=== PATIENT | male | born 1950 | race Caucasian/White ===

== ENCOUNTER 2021-07-17 18:16 | Observation (INO) | payer MEDICARE, SELFPAY ==
[2021-07-17 18:20] VITALS: BP 128/86; PULSE 108; PULSE 96; RESP 16; TEMP 36.8; O2SAT 96
--- NOTE | 2021-07-17 18:27 | ED.WEAKNESS ---
HPI - Weakness General Chief complaint: Unspecified Stated complaint: Safety concerns/knee pain Time Seen by Provider: 07/17/21 18:27 Source: patient, family and RN notes reviewed Mode of arrival: wheelchair Limitations: physical limitation History of Present Illness HPI Narrative: patient has been having progressively worsening pain over the last 4-5 days. 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 He has been having significant pain in his right knee and went to an other hospital yesterday where they did x-rays on the right knee that only showed arthritis. He is having so much pain in that right knee that he is unable to stand and pivot to get to the bathroom and time and today he actually had a bowel accident. He lives alone with no one else to care for him. He cannot get around his house on his own due to the right knee pain and prosthesis on his left leg. He has been feeling also progressively weak. His right lower extremity as become more dusky and cold with a purple discoloration. Denies any pain in the area below his knee only the pain in his right knee. MD Complaint: generalized weakness Duration: constant Location: generalized Migration: none Severity: moderate Relieving factors: none Exacerbating factors: movement Related Data Home Medications Medication Instructions Recorded Confirmed Mucinex 600 mg PO BID 07/17/21 07/17/21 acetaminophen-codeine 1 tablet PO PRN 07/17/21 07/17/21 albuterol sulfate 1 puff INHALATION Q4-5H 07/17/21 07/17/21 aspirin 81 mg PO DAILY 07/17/21 07/17/21 axitinib [Inlyta] 5 mg PO BID 07/17/21 07/17/21 betamethasone dipropionate 1 applic TOPICAL BID 07/17/21 07/17/21 bimatoprost [Lumigan] 1 drp OPHTHALMIC (EYE) HS 07/17/21 07/17/21 furosemide 40 mg PO DAILY 07/17/21 07/17/21 hydrocodone-acetaminophen 1 tablet PO PRN PRN 07/17/21 07/17/21 insulin degludec [Tresiba 20 unit SUBCUT DAILY 07/17/21 07/17/21 FlexTouch U-100] levothyroxine 200 mcg PO DAILY 07/17/21 07/17/21 simvastatin 60 mg PO HS 07/17/21 07/17/21 Allergies Allergy/AdvReac Type Severity Reaction Status Date / Time No Known Allergies Allergy Verified 07/17/21 18:40 Review of Systems Review of Systems: All systems reviewed & are unremarkable except as noted in HPI and below Constitutional: Constitutional: Denies chills and Denies fever(s) Cardiovascular: Cardiovascular: Denies chest pain and Denies rapid heart rate Respiratory: Respiratory: Denies cough and Denies dyspnea Gastrointestinal: Gastrointestinal: Denies diarrhea, Denies nausea and Denies vomiting Musculoskeletal: Comments: Pain in his right lower extremity right knee, discoloration of lower leg below the knee. Neurologic: Denies dizziness, Denies syncope and Denies headache(s) [facility] Past Medical History Medical History (Updated 07/17/21 @ 20:02 by Tank Clemens MD) Hyperlipidemia Hypothyroidism Metastatic cancer Peripheral vascular disease Renal cancer Type 2 diabetes mellitus Surgical History Surgical History (Updated 07/17/21 @ 19:29 by Tank Clemens MD) Above knee amputation of left lower extremity History of carpal tunnel release History of nephrectomy Hx of cholecystectomy Social History Social History (Updated 07/17/21 @ 19:30 by Tank Clemens MD) Smoking status: Never smoker Alcohol intake: current Alcohol use details: occasional Substance use: never Exam Const: General: no acute distress, alert and ill appearing chronically Nutritional Appearance: well nourished Orientation/consciousness: patient oriented x3 HENMT: Head: normal to inspection Ears: external ears normal General nose exam: Normal external nose present Eyes: Conjunctivae: conjunctivae normal Pupils: Equal, round and reactive pupils present EOM: EOMs intact bilaterally Neck: Neck: normal visual inspection Resp: Effort & Inspection: normal respiratory effort Auscultation: clear to auscul
[2021-07-17 18:52] LABS: Basophils Absolute Auto 0.05 K/mm3 (0.00-0.10); Basophils Percent Auto 0.5 % (0.0-1.0); Eosinophils Absolute Auto 0.11 K/mm3 (0.02-0.50); Hematocrit 43.6 % (37.0-46.0); Hemoglobin 12.5 g/dL (12.4-15.3); Immature Granulocyte Absolute 0.03 K/mm3 (0.00-0.00); Immature Granulocyte Percent A 0.3 % (0.0-0.0); Immature Platelet Fraction Pct 0.4 % (1.0-7.0); Mean Corpuscular HGB Conc 28.7 g/dL (32.0-36.0); Mean Corpuscular Hemoglobin 21.1 pg (27.0-31.0); Mean Corpuscular Volume 73.6 fL (78.0-102.0); Mean Platelet Volume 7.9 fl (8.7-11.0); Monocytes Absolute Auto 1.13 K/mm3 (0.10-0.90); Monocytes Percent Auto 10.4 % (2.0-11.0); Neutrophils Absolute Auto 8.2 K/mm3 (1.7-7.2); Neutrophils Percent Auto 75.8 % (50.0-70.0); Platelet Count Result 696 K/mm3 (150-420); Red Blood Count 5.92 M/mm3 (4.70-6.10); Red Cell Distribution Width 19.5 % (11.6-14.4); White Blood Count 10.9 K/mm3 (4.8-10.8)
--- NOTE | 2021-07-17 19:00 | PC.NURSE ---
RN doppled pts pedal and PT pulse. Pulses were faint but RN was able to hear it. X noted to foot from when EMS found it yesterday.
--- NOTE | 2021-07-17 19:01 | PC.NURSE ---
RN provided ice water as well as a urinal. Pt aware of need for urine specimen.
[2021-07-17 19:05] LABS: Alanine Aminotransferase 34 U/L (16-63); Albumin Level 2.1 g/dL (3.4-5.0); Alkaline Phosphatase 138 U/L (46-116); Anion Gap 16 mmol/L (8-16); Aspartate Amino Transferase 24 U/L (15-37); Bilirubin,Total 0.5 mg/dL (0.00-1.00); Blood Urea Nitrogen 26 mg/dL (7-18); Calcium 9.3 mg/dL (8.5-10.1); Carbon Dioxide 20 mmol/L (21-32); Chloride 101 mmol/L (98-108); Estimated CRCL calculation 52 ml/min; Estimated Glomerular Filt Rate 58; Glucose 212 mg/dL (70-99); Magnesium 1.7 mg/dL (1.8-2.4); Osmolality Calculated 294 mOsm/kg (285-295); Potassium 3.8 mmol/L (3.5-5.1); Sodium 137 mmol/L (136-145); Total Protein 7.9 g/dL (6.4-8.2)
[2021-07-17 19:07] LABS: CRP > 25.0 mg/dL (0.0-0.9)
[2021-07-17 19:16] LABS: Add Urine Microscopic? YES; Appearance Urine Clear (Clear); Bilirubin Urine Negative (Negative); Blood Urine Negative (Negative); Color Urine Yellow (Yellow); Glucose Urine UA 3+ (Negative); Ketones Urine Negative (Negative); Leukocyte Esterase Ur Negative LEU/UL (Negative); Nitrate Urine Negative (Negative); Protein Urine Trace (Negative); Urobilinogen Urine 0.2 mg/dL (0.2-1.0); pH Urine 5.5 (5.0-8.0)
[2021-07-17 19:24] LABS: Mucus Urine Few /lpf; Squamous Epithelial Cell Urine Rare /hpf (Few)
--- NOTE | 2021-07-17 19:25 | PC.NURSE ---
RN gave report to fahad ALFARO. Pts medical release form faxed to [facility]
--- NOTE | 2021-07-17 20:07 | PC.NURSE ---
Call placed to M/S p Dr Clemens spoke yanique Rivera NP for 23 hr obs. Pt to go to Rm 203. Pt sitting up in bed, no c/o at this time. VSS.
[2021-07-17] MEDS: LIDOCAINE HCL 1% LOCAL INJ 20 ML VIAL XX (20:15)
[2021-07-17] MEDS: TRIAMCINOLONE ACET INJ 40 MG/ML VIAL I-ARTICULR (20:15)
[2021-07-17 20:27] VITALS: BP 124/71; PULSE 100; RESP 18; TEMP 36.4; O2SAT 96
[2021-07-17 22:00] VITALS: O2SAT 96
--- NOTE | 2021-07-17 22:00 | PC.NURSE ---
Patient admitted to room 203 from the ER per stretcher. Is alert and oriented times 3, no c/o pain at this time, oriented to room, call light and surroundings.
[2021-07-17 22:07] VITALS: BMI 29.6
[2021-07-17 22:42] VITALS: PULSE 70; O2SAT 94
--- NOTE | 2021-07-17 22:43 | PC.NURSE ---
Doctor note stated patient live alone. Patient lives in [place] with his .
[2021-07-18] VITALS: BP 113/62; PULSE 70; RESP 18; TEMP 36.1; O2SAT 94
[2021-07-18 05:08] LABS: Hematocrit 41.2 % (37.0-46.0); Hemoglobin 11.8 g/dL (12.4-15.3); Immature Platelet Fraction Pct 0.5 % (1.0-7.0); Mean Corpuscular HGB Conc 28.6 g/dL (32.0-36.0); Mean Corpuscular Hemoglobin 21.1 pg (27.0-31.0); Mean Corpuscular Volume 73.6 fL (78.0-102.0); Mean Platelet Volume 8.6 fl (8.7-11.0); Platelet Count Result 643 K/mm3 (150-420); Red Cell Distribution Width 19.2 % (11.6-14.4); White Blood Count 6.6 K/mm3 (4.8-10.8)
[2021-07-18 05:30] VITALS: O2SAT 94
[2021-07-18 05:30] LABS: Anion Gap 10 mmol/L (8-16); Blood Urea Nitrogen 25 mg/dL (7-18); Calcium 9.1 mg/dL (8.5-10.1); Carbon Dioxide 23 mmol/L (21-32); Chloride 101 mmol/L (98-108); Estimated CRCL calculation 60 ml/min; Estimated Glomerular Filt Rate > 60; Glucose 197 mg/dL (70-99); Osmolality Calculated 287 mOsm/kg (285-295); Potassium 5.3 mmol/L (3.5-5.1); Sodium 134 mmol/L (136-145)
[2021-07-18] MEDS: LEVOTHYROXINE SODIUM 100 MCG TABLET 200 MCG PO (06:15)
[2021-07-18 08:00] VITALS: BP 121/70; PULSE 85; RESP 18; TEMP 35.9; O2SAT 97
--- NOTE | 2021-07-18 08:28 | PHAR ---
med from home identified [id number] [facility] Pharmacy - [facility] Inlyta 1 mg tablets - 3 tablets bid
[2021-07-18] MEDS: ASPIRIN 81 MG ENTERIC TABLET PO (08:33)
[2021-07-18] MEDS: guaiFENesin 12 HR 600 MG TABCR PO (08:33)
[2021-07-18 16:00] VITALS: BP 125/69; PULSE 80; RESP 16; TEMP 36; O2SAT 97
[2021-07-18] MEDS: HYDROcodone/acetaminophen (*CRX) 5-325 MG TABLET 1 TAB PO (16:03)
[2021-07-18 16:43] LABS: Magnesium 2.1 mg/dL (1.8-2.4)
[2021-07-18 16:45] LABS: Glucose Point of Care 238 mg/dl (65-105)
[2021-07-18] MEDS: SODIUM CHLORIDE 0.9% IV 1,000 ML 100 ML IV CONT (18:37)
[2021-07-18] MEDS: SIMVASTATIN 10 MG TABLET 60 MG PO (21:11)
[2021-07-18 21:31] LABS: Glucose Point of Care 224 mg/dl (65-105)
[2021-07-19] VITALS: BP 134/68; PULSE 73; RESP 18; TEMP 36.2; O2SAT 95
[2021-07-19] MEDS: SODIUM CHLORIDE 0.9% IV 1,000 ML 100 ML IV CONT ×2 (05:15→16:09)
[2021-07-19 05:30] VITALS: O2SAT 95
[2021-07-19 05:30] LABS: Hematocrit 39.9 % (37.0-46.0); Hemoglobin 11.5 g/dL (12.4-15.3); Immature Platelet Fraction Pct 0.6 % (1.0-7.0); Mean Corpuscular HGB Conc 28.8 g/dL (32.0-36.0); Mean Corpuscular Hemoglobin 21.3 pg (27.0-31.0); Mean Corpuscular Volume 73.8 fL (78.0-102.0); Mean Platelet Volume 8.9 fl (8.7-11.0); Platelet Count Result 670 K/mm3 (150-420); Red Blood Count 5.41 M/mm3 (4.70-6.10); Red Cell Distribution Width 19.1 % (11.6-14.4); White Blood Count 11.3 K/mm3 (4.8-10.8)
[2021-07-19 05:44] LABS: Anion Gap 15 mmol/L (8-16); Blood Urea Nitrogen 28 mg/dL (7-18); Calcium 8.7 mg/dL (8.5-10.1); Carbon Dioxide 21 mmol/L (21-32); Chloride 103 mmol/L (98-108); Estimated CRCL calculation 61 ml/min; Estimated Glomerular Filt Rate > 60; Glucose 299 mg/dL (70-99); Osmolality Calculated 304 mOsm/kg (285-295); Potassium 5.1 mmol/L (3.5-5.1); Sodium 139 mmol/L (136-145)
[2021-07-19] MEDS: LEVOTHYROXINE SODIUM 100 MCG TABLET 200 MCG PO (06:17)
[2021-07-19 07:39] LABS: Glucose Point of Care 218 mg/dl (65-105)
[2021-07-19 08:00] VITALS: BP 129/73; PULSE 80; RESP 14; TEMP 36.5; O2SAT 96
[2021-07-19] MEDS: FUROSEMIDE 40 MG TABLET PO (09:08)
[2021-07-19] MEDS: guaiFENesin 12 HR 600 MG TABCR PO ×2 (09:08→21:06)
[2021-07-19] MEDS: ASPIRIN 81 MG ENTERIC TABLET PO (09:08)
--- NOTE | 2021-07-19 10:07 | PM.IMHP ---
H&P: HPI History of Present Illness Date/Time: 07/19/21 10:07 is a 70-year-old male presented to the emergency room with frequent falls weakness and inability to care for himself at home. Received a phone call from the emergency room stating that patient had a urinary tract infection, had a left below the knee amputation patient has prostheses at home but has a sore on his leg and ability to wear it appropriately right, right leg has cellulitis with poor circulation peripheral vallate vascular disease and discoloration pulses had to be doppled with faint pulses noted. Patient was admitted with WBCs at 10.9 hemoglobin 12.5, sodium 137, potassium 3.8 mag was low at 1.7. Patient was seen 1 day prior in the emergency room at another hospital due to progressive knee pain and weakness x-ray was completed there and he was informed that he has arthritis in his knee. Discussion with patient and his as she feels like he is needing physical therapy at a rehab and or snf as she is unable to care for him at this time. Patient in the emergency room received a steroid injection in his knee for the pain. Chief Complaint: Weakness, knee pain Review of Systems Review of Systems: Weakness, right leg pain, falls All systems reviewed & are unremarkable except as noted in HPI and below PMFSH Past Medical History Medical History (Updated 07/20/21 @ 17:01 by YASMIN Norman) Hyperlipidemia Hypothyroidism Metastatic cancer Peripheral vascular disease Renal cancer Type 2 diabetes mellitus Surgical History Surgical History Above knee amputation of left lower extremity History of carpal tunnel release History of nephrectomy Hx of cholecystectomy Social History Social History Smoking status: Smoker, status unknown Second hand tobacco smoke exposure: No Alcohol intake: never Alcohol use details: occasional Substance use: never Gender identity (if verbalized by the patient): Male Sexual Orientation (if Verbalized by the Patient): Straight or Heterosexual Spiritual care concerns: No Meds Home Medications and Allergies Home Medications Medication Instructions Recorded Confirmed Type Inlyta 5 mg PO BID 07/17/21 07/20/21 History Lumigan 1 drp OPHTHALMIC (EYE) HS 07/17/21 07/20/21 History Mucinex 600 mg PO BID 07/17/21 07/20/21 History Tresiba FlexTouch U-100 20 unit SUBCUT DAILY 07/17/21 07/20/21 History acetaminophen-codeine 1 tablet PO PRN 07/17/21 07/20/21 History albuterol sulfate 1 puff INHALATION Q4-5H 07/17/21 07/20/21 History aspirin 81 mg PO DAILY 07/17/21 07/20/21 History betamethasone dipropionate 1 applic TOPICAL BID 07/17/21 07/20/21 History furosemide 40 mg PO DAILY 07/17/21 07/20/21 History hydrocodone-acetaminophen 1 tablet PO PRN PRN 07/17/21 07/20/21 History levothyroxine 200 mcg PO DAILY 07/17/21 07/20/21 History simvastatin 60 mg PO HS 07/17/21 07/20/21 History ceftriaxone 1 g IV Q24H 7 Days ea 07/20/21 07/20/21 Rx Allergies Allergy/AdvReac Type Severity Reaction Status Date / Time No Known Allergies Allergy Verified 07/17/21 18:40 Vital Signs Vital Signs - 24 hr 07/18/21 16:00 07/19/21 00:00 07/19/21 08:00 Temperature 96.8 F L 97.2 F L 97.7 F Pulse Rate 80 73 80 Respiratory Rate 16 18 14 Blood Pressure 125/69 134/68 129/73 Pulse Oximetry 97 95 96 Exam Narrative: GENERAL: This is a well-nourished, in no apparent distress. HEAD: normocephalic, atraumatic. EYES: PERRL. Sclera clear/white. Vision is grossly intact. NOSE: External nose normal with no obvious nasal discharge, nares without redness, no rhinorrhea. THROAT: Mucous membranes moist, posterior pharynx clear. CARDIOVASCULAR: Regular rate and rhythm without murmurs, gallops, or rubs. RESPIRATORY: Clear to auscultation. Breath sounds equal bilaterally. No wheezes, rales, or rhonchi. GASTROINTEST
[2021-07-19 11:02] LABS: Glucose Point of Care 245 mg/dl (65-105)
[2021-07-19 11:03] LABS: Glucose Point of Care 231 mg/dl (65-105)
[2021-07-19 11:51] LABS: Glucose Point of Care 244 mg/dl (65-105)
[2021-07-19 15:41] VITALS: BP 127/72; PULSE 78; RESP 16; TEMP 36.2
[2021-07-19 16:19] LABS: Glucose Point of Care 193 mg/dl (65-105)
[2021-07-19] MEDS: SIMVASTATIN 10 MG TABLET 60 MG PO (21:06)
[2021-07-19 21:23] LABS: Glucose Point of Care 249 mg/dl (65-105)
[2021-07-20] VITALS: BP 131/75; PULSE 76; RESP 18; TEMP 36.1; O2SAT 95
[2021-07-20] MEDS: SODIUM CHLORIDE 0.9% IV 1,000 ML 100 ML IV CONT (01:44)
[2021-07-20 05:42] LABS: Hematocrit 39.9 % (37.0-46.0); Hemoglobin 11.5 g/dL (12.4-15.3); Immature Platelet Fraction Pct 0.5 % (1.0-7.0); Mean Corpuscular HGB Conc 28.8 g/dL (32.0-36.0); Mean Corpuscular Hemoglobin 21.1 pg (27.0-31.0); Mean Corpuscular Volume 73.2 fL (78.0-102.0); Mean Platelet Volume 8.4 fl (8.7-11.0); Platelet Count Result 647 K/mm3 (150-420); Red Blood Count 5.45 M/mm3 (4.70-6.10); Red Cell Distribution Width 19.5 % (11.6-14.4); White Blood Count 10.7 K/mm3 (4.8-10.8)
[2021-07-20 05:48] LABS: Anion Gap 14 mmol/L (8-16); Blood Urea Nitrogen 24 mg/dL (7-18); Calcium 8.7 mg/dL (8.5-10.1); Carbon Dioxide 21 mmol/L (21-32); Chloride 102 mmol/L (98-108); Estimated CRCL calculation 65 ml/min; Estimated Glomerular Filt Rate > 60; Glucose 215 mg/dL (70-99); Osmolality Calculated 294 mOsm/kg (285-295); Potassium 4.4 mmol/L (3.5-5.1); Sodium 137 mmol/L (136-145)
[2021-07-20] MEDS: LEVOTHYROXINE SODIUM 100 MCG TABLET 200 MCG PO (06:11)
[2021-07-20 07:58] LABS: Glucose Point of Care 210 mg/dl (65-105)
[2021-07-20 08:00] VITALS: BP 137/79; PULSE 86; RESP 14; TEMP 36.3; O2SAT 96
[2021-07-20] MEDS: ASPIRIN 81 MG ENTERIC TABLET PO (08:54)
[2021-07-20] MEDS: guaiFENesin 12 HR 600 MG TABCR PO (08:54)
[2021-07-20] MEDS: FUROSEMIDE 40 MG TABLET PO (08:54)
[2021-07-20] MEDS: ACETAMINOPHEN 325 MG TABLET 650 MG PO (11:37)
[2021-07-20 11:47] LABS: Glucose Point of Care 223 mg/dl (65-105)
--- NOTE | 2021-07-20 12:09 | PM.DS ---
DS: Admitting Diagnosis Discharge Date 07/20/2021 Admitting Diagnosis Status post fall, generalized weakness, UTI DS: Discharge Diagnosis Discharge Diagnosis (1) Weakness generalized: Code(s): R53.1 - Weakness Status: Acute Assessment and Plan: ? Exhibit tolerance during physical activity as evidenced by a normal fluctuation of vital signs during physical activity. ? Patient will be ability to perform required activities of daily living. ? Provide appropriate nutrition for healing and strength. ? Use appropriate to prevent falls. ? Continue physical therapy/occupational therapy. (2) Acute UTI: Code(s): N39.0 - Urinary tract infection, site not specified Status: Acute Assessment and Plan: Rocephin D3 Urine culture sent off after the start of Rocephin Patient's WBC within normal limits and afebrile (3) Knee osteoarthritis: Qualifiers: Laterality: right Osteoarthritis type: primary Qualified Code(s): M17.11 - Unilateral primary osteoarthritis, right knee Code(s): M17.10 - Unilateral primary osteoarthritis, unspecified knee Status: Acute Assessment and Plan: Pt given steroid injection in the emergency room physical therpay to evaluate and treat X-ray of the right knee pending (4) Type 2 diabetes mellitus: Code(s): E11.9 - Type 2 diabetes mellitus without complications Status: Inactive Assessment and Plan: Blood sugar less than 300 Accu checks with sliding scale hypoglycemic protocol Continue diabetic diet Will adjust medication as needed DS: Summary Hospital Course Reason for hospitalization: Right knee pain, UTI and generalized weakness Hospital Course: This is a 70-year-old male that presented to our emergency department with worsening pain to his right knee , generalized weakness status post fall. According to the patient approximately 2 weeks ago he presented to [place] emergency department due to his weakness and was diagnosed with arthritis to his right knee. Patient notes that his condition did not improve and he came to our emergency department status post fall and generalized weakness with unresolved right knee pain. patient notes that he experienced pain with weightbearing and no pain while sitting still. Patient is being treated for urinary tract infection with Rocephin. His condition has improved he will transition to a swing bed. Patient admitted in swing bed for rehabilitation due to decreased balance decreased mobility in severe limited function endurant and/or mobility. Time Spent with Patient Time attestation: Total time spent providing and/or coordinating discharge services: Exam Narrative: GENERAL: This is a well-nourished, well-developed patient, in no apparent distress. HEAD: normocephalic, atraumatic. EYES: PERRL. Sclera clear/white. Vision is grossly intact. EARS: External ears normal, auditory canals clear and without drainage, TMs normal without perforation. Hearing grossly intact. NOSE: External nose normal with no obvious nasal discharge, nares without redness, no rhinorrhea. THROAT: Mucous membranes moist, posterior pharynx clear. NECK: Neck supple, non-tender without lymphadenopathy, masses or thyromegaly. CARDIOVASCULAR: Regular rate and rhythm without murmurs, gallops, or rubs. RESPIRATORY: Clear to auscultation. Breath sounds equal bilaterally. No wheezes, rales, or rhonchi. GASTROINTESTINAL: Abdomen soft, non-tender, nondistended. Bowel sounds are active. No hepato-splenomegaly, or palpable masses. No guarding. SKIN: AKA to left lower extremity prosthetic in place, right lower extremity with discoloration and coolness to right extremity patient with history of PVD and cellulitis. Several scabs to right lower extremity. Multiple skin tears and discoloration to the upper extremities NEURO: awake, alert, and oriented to person, place and time. There were no obvious focal neurologic abnormalities.
== END 2021-07-20 12:10 | disposition swing bed (61) ==
LOC: CHSED 20:01 → CHS2ND 20:29
PROVIDERS: Nurse Practitioner Family; Admitting Provider Emergency Medicine; Emergency Provider Emergency Medicine; PCP Internal Medicine; Visit Provider Emergency Medicine
DX: R53.1 Weakness (principal); M17.11 Unilateral primary osteoarthritis, right knee; N39.0 Urinary tract infection, site not specified; L03.115 Cellulitis of right lower limb; T87.89 Other complications of amputation stump; E11.51 Type 2 diabetes mellitus with diabetic peripheral angiopathy without gangrene; E78.5 Hyperlipidemia, unspecified; E03.9 Hypothyroidism, unspecified; R29.6 Repeated falls; Z79.4 Long term (current) use of insulin; Z85.528 Personal history of other malignant neoplasm of kidney; Z89.612 Acquired absence of left leg above knee
CPT/HCPCS: 20610; 36415; 80048; 80053; 81001; 82948; 83735; 85025; 85027; 85055; 86140; 87086; 96361; 96365; 96366; 97110; 97162; 97165; 97530; 97535; 99285; A9270; G0378; J0696; J1815; J3301; J7030

== ENCOUNTER 2021-07-20 12:41 | Inpatient (IN) | payer MEDICARE, SELFPAY ==
--- NOTE | ~2021-07-20 | XR_ITS ---
EXAMINATION: XR chest 1V portable INDICATION: Cough TECHNIQUE: Portable AP chest at 1102 hours COMPARISON: None available FINDINGS: There is a 2.2 cm nodule left upper lobe. There is also fullness of the left hilum. No pleu ral effusion or pneumothorax. The heart size is normal. IMPRESSION: 1. 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 Further evaluation with CT of the ch est is recommended. Reviewed, dictated and finalized at location A. [place] MEDIA CAMPAIGN MANAGER IMPRESSION: 1. 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 Further evalua tion with CT of the chest is recommended.
[2021-07-20 14:00] VITALS: BP 137/79; PULSE 86; RESP 14; TEMP 36.7; O2SAT 96
[2021-07-20 16:00] VITALS: BP 131/77; PULSE 84; RESP 16; TEMP 36.2; O2SAT 97
--- NOTE | 2021-07-20 16:16 | PHAR ---
HOME MEDICATION VERIFIED BY PHARMACY: VERIFIED WITH RN OVER THE PHONE DRUG NAME: INLYTA INGREDIENTS: AXITINIB -- 1 MG RELATED DOCUMENTS: DRUGDEX EVALUATIONS - AXITINIB COLOR: RED SHAPE: OVAL IMPRINT: 1 XNB PFIZER FORM: ORAL TABLET
[2021-07-20 16:42] LABS: Glucose Point of Care 219 mg/dl (65-105)
--- NOTE | 2021-07-20 16:59 | PM.IMHP ---
H&P: HPI History of Present Illness Date/Time: 07/20/21 16:59Thimagdy is a 70-year-old male that presented to our emergency department with worsening pain to his right knee , generalized weakness status post fall. According to the patient approximately 2 weeks ago he presented to [place] emergency department due to his weakness and was diagnosed with arthritis to his right knee. Patient notes that his condition did not improve and he came to our emergency department status post fall and generalized weakness with unresolved right knee pain. patient notes that he experienced pain with weightbearing and no pain while sitting still. Patient is being treated for urinary tract infection with Rocephin. His condition has improved he will transition to a swing bed. Patient admitted in swing bed for rehabilitation due to decreased balance decreased mobility in severe limited function endurant and/or mobility. Chief Complaint: Weakness Review of Systems Review of Systems: A 14 organ system Review of Systems was performed and pertinent positives included in the HPI, otherwise remaining ROS is negative. [facility] Past Medical History Medical History (Updated 07/20/21 @ 17:01 by YASMIN Norman) Hyperlipidemia Hypothyroidism Metastatic cancer Peripheral vascular disease Renal cancer Type 2 diabetes mellitus Surgical History Surgical History Above knee amputation of left lower extremity History of carpal tunnel release History of nephrectomy Hx of cholecystectomy Social History Social History Smoking status: Smoker, status unknown Second hand tobacco smoke exposure: No Alcohol intake: never Alcohol use details: occasional Substance use: never Gender identity (if verbalized by the patient): Male Sexual Orientation (if Verbalized by the Patient): Straight or Heterosexual Spiritual care concerns: No Meds Home Medications and Allergies Home Medications Medication Instructions Recorded Confirmed Type Inlyta 5 mg PO BID 07/17/21 07/20/21 History Lumigan 1 drp OPHTHALMIC (EYE) HS 07/17/21 07/20/21 History Mucinex 600 mg PO BID 07/17/21 07/20/21 History Tresiba FlexTouch U-100 20 unit SUBCUT DAILY 07/17/21 07/20/21 History acetaminophen-codeine 1 tablet PO PRN 07/17/21 07/20/21 History albuterol sulfate 1 puff INHALATION Q4-5H 07/17/21 07/20/21 History aspirin 81 mg PO DAILY 07/17/21 07/20/21 History betamethasone dipropionate 1 applic TOPICAL BID 07/17/21 07/20/21 History furosemide 40 mg PO DAILY 07/17/21 07/20/21 History hydrocodone-acetaminophen 1 tablet PO PRN PRN 07/17/21 07/20/21 History levothyroxine 200 mcg PO DAILY 07/17/21 07/20/21 History simvastatin 60 mg PO HS 07/17/21 07/20/21 History ceftriaxone 1 g IV Q24H 7 Days ea 07/20/21 07/20/21 Rx Allergies Allergy/AdvReac Type Severity Reaction Status Date / Time No Known Allergies Allergy Verified 07/17/21 18:40 Vital Signs Vital Signs - 24 hr 07/20/21 14:00 Temperature 98.0 F Pulse Rate 86 Respiratory Rate 14 Blood Pressure 137/79 Pulse Oximetry 96 Exam Narrative: GENERAL: This is a well-nourished, well-developed patient, in no apparent distress. HEAD: normocephalic, atraumatic. EYES: PERRL. Sclera clear/white. Vision is grossly intact. EARS: External ears normal, auditory canals clear and without drainage, TMs normal without perforation. Hearing grossly intact. NOSE: External nose normal with no obvious nasal discharge, nares without redness, no rhinorrhea. THROAT: Mucous membranes moist, posterior pharynx clear. NECK: Neck supple, non-tender without lymphadenopathy, masses or thyromegaly. CARDIOVASCULAR: Regular rate and rhythm without murmurs, gallops, or rubs. RESPIRATORY: Clear to auscultation. Breath sounds equal bilaterally. No wheezes, rales, or rhonchi. GASTROINTESTINAL: Abdomen soft, non-tender, nondistended. Bowel
[2021-07-20] MEDS: HYDROcodone/acetaminophen (*CRX) 5-325 MG TABLET 1 TAB PO (18:00)
[2021-07-20] MEDS: SIMVASTATIN 10 MG TABLET 60 MG PO (20:58)
[2021-07-20] MEDS: INSULIN GLARGINE (*BKC) 100 UNITS/ML 20 UNITS SUB-Q (20:58)
[2021-07-20] MEDS: DOCUSATE SODIUM 100 MG CAPSULE PO (20:58)
[2021-07-20 21:02] LABS: Glucose Point of Care 281 mg/dl (65-105)
[2021-07-20] MEDS: LATANOPROST 0.005% OP SOLN 2.5 ML BTL 1 DROP EACH EYE (21:03)
[2021-07-21] VITALS: BP 129/76; PULSE 82; RESP 16; TEMP 36.8; O2SAT 97
[2021-07-21] MEDS: HYDROcodone/acetaminophen (*CRX) 5-325 MG TABLET 1 TAB PO ×2 (00:22→20:25)
[2021-07-21] MEDS: LEVOTHYROXINE SODIUM 100 MCG TABLET 200 MCG PO (05:41)
[2021-07-21 07:34] LABS: Glucose Point of Care 172 mg/dl (65-105)
[2021-07-21 08:00] VITALS: BP 130/70; PULSE 80; RESP 20; TEMP 36.4; O2SAT 95
[2021-07-21] MEDS: DOCUSATE SODIUM 100 MG CAPSULE PO ×2 (08:17→20:22)
[2021-07-21] MEDS: FUROSEMIDE 40 MG TABLET PO (08:17)
[2021-07-21] MEDS: ASPIRIN 81 MG ENTERIC TABLET PO (08:17)
[2021-07-21 12:00] LABS: Glucose Point of Care 228 mg/dl (65-105)
[2021-07-21 15:34] VITALS: BP 123/82; PULSE 99; RESP 16; TEMP 36.8; O2SAT 98
[2021-07-21 17:11] LABS: Glucose Point of Care 227 mg/dl (65-105)
[2021-07-21] MEDS: ACETAMINOPHEN 325 MG TABLET 650 MG PO (17:20)
[2021-07-21 20:17] LABS: Glucose Point of Care 222 mg/dl (65-105)
[2021-07-21] MEDS: INSULIN GLARGINE (*BKC) 100 UNITS/ML 20 UNITS SUB-Q (20:23)
[2021-07-21] MEDS: LATANOPROST 0.005% OP SOLN 2.5 ML BTL 1 DROP EACH EYE (20:24)
[2021-07-21] MEDS: SIMVASTATIN 10 MG TABLET 60 MG PO (20:24)
[2021-07-22] VITALS: BP 136/81; PULSE 81; RESP 18; TEMP 36; O2SAT 97
[2021-07-22] MEDS: HYDROcodone/acetaminophen (*CRX) 5-325 MG TABLET 1 TAB PO ×2 (02:28→21:25)
[2021-07-22] MEDS: LEVOTHYROXINE SODIUM 100 MCG TABLET 200 MCG PO (06:13)
[2021-07-22 08:00] VITALS: BP 114/74; PULSE 74; RESP 20; TEMP 36.6; O2SAT 96
[2021-07-22 08:00] LABS: Glucose Point of Care 219 mg/dl (65-105)
[2021-07-22] MEDS: DOCUSATE SODIUM 100 MG CAPSULE PO ×2 (09:07→21:24)
[2021-07-22] MEDS: ASPIRIN 81 MG ENTERIC TABLET PO (09:07)
[2021-07-22] MEDS: FUROSEMIDE 40 MG TABLET PO (09:07)
[2021-07-22] MEDS: ACETAMINOPHEN 325 MG TABLET 650 MG PO ×2 (11:53→19:31)
[2021-07-22 12:02] LABS: Glucose Point of Care 255 mg/dl (65-105)
[2021-07-22 16:00] VITALS: BP 134/79; PULSE 99; RESP 18; TEMP 35.9; O2SAT 97
[2021-07-22 16:55] LABS: Glucose Point of Care 280 mg/dl (65-105)
[2021-07-22] MEDS: SIMVASTATIN 10 MG TABLET 60 MG PO (21:24)
[2021-07-22] MEDS: LATANOPROST 0.005% OP SOLN 2.5 ML BTL 1 DROP EACH EYE (21:24)
[2021-07-22] MEDS: INSULIN GLARGINE (*BKC) 100 UNITS/ML 20 UNITS SUB-Q (21:26)
[2021-07-22 21:37] LABS: Glucose Point of Care 266 mg/dl (65-105)
[2021-07-23] VITALS: BP 138/71; PULSE 86; RESP 20; TEMP 35.7; O2SAT 95
--- NOTE | 2021-07-23 00:13 | PC.NURSE ---
Pt resting in bed and states he is comfortable. No signs of discomfort noted.
--- NOTE | 2021-07-23 02:05 | PC.NURSE ---
Pt resting quietly in bed; 325 ml of clear, yellow urine emptied from the urinal.
[2021-07-23] MEDS: LEVOTHYROXINE SODIUM 100 MCG TABLET 200 MCG PO (06:35)
--- NOTE | 2021-07-23 06:40 | PC.NURSE ---
Pt given synthroid 200 mcg PO as ordered. 125 ml of clear, yellow urine emptied from urinal.
[2021-07-23 07:35] VITALS: BP 127/71; PULSE 92; RESP 16; TEMP 35.9; O2SAT 94
[2021-07-23 08:31] LABS: Glucose Point of Care 206 mg/dl (65-105)
[2021-07-23] MEDS: FUROSEMIDE 40 MG TABLET PO (09:14)
[2021-07-23] MEDS: DOCUSATE SODIUM 100 MG CAPSULE PO ×2 (09:14→20:34)
[2021-07-23] MEDS: ASPIRIN 81 MG ENTERIC TABLET PO (09:14)
[2021-07-23] MEDS: HYDROcodone/acetaminophen (*CRX) 5-325 MG TABLET 1 TAB PO ×2 (09:18→20:39)
[2021-07-23 12:09] LABS: Glucose Point of Care 246 mg/dl (65-105)
[2021-07-23 16:17] LABS: Glucose Point of Care 345 mg/dl (65-105)
[2021-07-23 16:30] VITALS: BP 139/75; PULSE 92; RESP 16; TEMP 36.4; O2SAT 96
[2021-07-23] MEDS: SIMVASTATIN 10 MG TABLET 60 MG PO (20:34)
[2021-07-23] MEDS: LATANOPROST 0.005% OP SOLN 2.5 ML BTL 1 DROP EACH EYE (20:36)
[2021-07-23] MEDS: INSULIN GLARGINE (*BKC) 100 UNITS/ML 20 UNITS SUB-Q (20:37)
[2021-07-23 20:38] LABS: Glucose Point of Care 284 mg/dl (65-105)
[2021-07-24] VITALS: BP 134/79; PULSE 90; RESP 18; TEMP 36.3; O2SAT 96
[2021-07-24] MEDS: LEVOTHYROXINE SODIUM 100 MCG TABLET 200 MCG PO (05:44)
[2021-07-24] MEDS: HYDROcodone/acetaminophen (*CRX) 5-325 MG TABLET 1 TAB PO ×2 (06:21→16:34)
[2021-07-24 07:59] LABS: Glucose Point of Care 192 mg/dl (65-105)
[2021-07-24 08:00] VITALS: BP 135/73; PULSE 87; RESP 14; TEMP 35.7; O2SAT 98
[2021-07-24] MEDS: ASPIRIN 81 MG ENTERIC TABLET PO (09:09)
[2021-07-24] MEDS: DOCUSATE SODIUM 100 MG CAPSULE PO ×2 (09:09→20:31)
[2021-07-24] MEDS: FUROSEMIDE 40 MG TABLET PO (09:09)
[2021-07-24 11:58] LABS: Glucose Point of Care 275 mg/dl (65-105)
[2021-07-24 16:00] VITALS: BP 134/70; PULSE 94; RESP 16; TEMP 36.3; O2SAT 97
[2021-07-24 16:31] LABS: Glucose Point of Care 311 mg/dl (65-105)
[2021-07-24] MEDS: SIMVASTATIN 10 MG TABLET 60 MG PO (20:30)
[2021-07-24] MEDS: LATANOPROST 0.005% OP SOLN 2.5 ML BTL 1 DROP EACH EYE (20:32)
[2021-07-24 20:35] LABS: Glucose Point of Care 283 mg/dl (65-105)
[2021-07-24] MEDS: INSULIN GLARGINE (*BKC) 100 UNITS/ML 20 UNITS SUB-Q (20:44)
[2021-07-25] VITALS: BP 133/70; PULSE 84; RESP 18; TEMP 35.8; O2SAT 96
[2021-07-25] MEDS: HYDROcodone/acetaminophen (*CRX) 5-325 MG TABLET 1 TAB PO ×4 (00:37→23:30)
[2021-07-25 05:27] LABS: Hemoglobin 13.3 g/dL (12.4-15.3); Immature Platelet Fraction Pct 0.8 % (1.0-7.0); Mean Corpuscular HGB Conc 28.9 g/dL (32.0-36.0); Mean Corpuscular Hemoglobin 21.7 pg (27.0-31.0); Mean Platelet Volume 8.5 fl (8.7-11.0); Platelet Count Result 597 K/mm3 (150-420); Red Blood Count 6.13 M/mm3 (4.70-6.10); White Blood Count 10.6 K/mm3 (4.8-10.8)
[2021-07-25 06:02] LABS: Alanine Aminotransferase 45 U/L (16-63); Albumin Level 1.9 g/dL (3.4-5.0); Alkaline Phosphatase 149 U/L (46-116); Anion Gap 12 mmol/L (8-16); Aspartate Amino Transferase 28 U/L (15-37); Bilirubin,Total 0.4 mg/dL (0.00-1.00); Blood Urea Nitrogen 19 mg/dL (7-18); Calcium 9.1 mg/dL (8.5-10.1); Carbon Dioxide 24 mmol/L (21-32); Chloride 99 mmol/L (98-108); Estimated Glomerular Filt Rate > 60; Ferritin 442 ng/mL (26-388); Folic Acid 17.4 ng/mL (8.6->20); Glucose 252 mg/dL (70-99); Magnesium 2.1 mg/dL (1.8-2.4); Osmolality Calculated 291 mOsm/kg (285-295); Potassium 4.2 mmol/L (3.5-5.1); Sodium 135 mmol/L (136-145); Total Protein 7.3 g/dL (6.4-8.2); Vitamin B12 205 pg/mL (193-986)
[2021-07-25] MEDS: LEVOTHYROXINE SODIUM 100 MCG TABLET 200 MCG PO (06:08)
[2021-07-25 06:14] LABS: Iron 21 ug/dL (65-175); Percent Iron Saturation 13 % (12-57)
[2021-07-25 07:38] LABS: Glucose Point of Care 171 mg/dl (65-105)
[2021-07-25 08:00] VITALS: BP 115/65; PULSE 110; RESP 14; TEMP 35.9; O2SAT 96
[2021-07-25] MEDS: DOCUSATE SODIUM 100 MG CAPSULE PO ×2 (09:18→21:11)
[2021-07-25] MEDS: ASPIRIN 81 MG ENTERIC TABLET PO (09:18)
[2021-07-25] MEDS: FUROSEMIDE 40 MG TABLET PO (09:20)
[2021-07-25 11:54] LABS: Glucose Point of Care 292 mg/dl (65-105)
[2021-07-25 16:00] VITALS: BP 120/64; PULSE 94; RESP 20; TEMP 35.8; O2SAT 98
[2021-07-25 17:01] LABS: Glucose Point of Care > 450 mg/dl (65-105)
[2021-07-25 17:08] LABS: Glucose Point of Care 353 mg/dl (65-105)
[2021-07-25] MEDS: SIMVASTATIN 10 MG TABLET 60 MG PO (21:11)
[2021-07-25 21:25] LABS: Glucose Point of Care 264 mg/dl (65-105)
[2021-07-25] MEDS: LATANOPROST 0.005% OP SOLN 2.5 ML BTL 1 DROP EACH EYE (21:25)
[2021-07-25] MEDS: INSULIN GLARGINE (*BKC) 100 UNITS/ML 20 UNITS SUB-Q (21:27)
[2021-07-25 23:40] VITALS: BP 137/62; PULSE 88; RESP 18; TEMP 36.1; O2SAT 96
[2021-07-26] MEDS: LEVOTHYROXINE SODIUM 100 MCG TABLET 200 MCG PO (05:38)
[2021-07-26 07:44] LABS: Glucose Point of Care 194 mg/dl (65-105)
--- NOTE | 2021-07-26 07:57 | PM.EVENT ---
Event Note Event Note Event Note: bs elevated changed SSI to moderate and increased lantus to 25unit instead of 20 unit hs.
[2021-07-26 08:00] VITALS: BP 121/74; PULSE 72; RESP 16; TEMP 36; O2SAT 100
[2021-07-26] MEDS: ASPIRIN 81 MG ENTERIC TABLET PO (08:06)
[2021-07-26] MEDS: FUROSEMIDE 40 MG TABLET PO (08:07)
[2021-07-26] MEDS: DOCUSATE SODIUM 100 MG CAPSULE PO ×2 (08:07→20:48)
--- NOTE | 2021-07-26 09:57 | PC.NURSE ---
Patient continues to take 2 chemo medication tablets during med pass instead of 3, stating that 3 causes too many side effects for him. Office Professional administered 2 tablets per patient request.
[2021-07-26 12:44] LABS: Glucose Point of Care 278 mg/dl (65-105)
--- NOTE | 2021-07-26 13:37 | PC.NURSE ---
Pasta Press Operator assessed wound on outer R heel of patient. Wound is not open, scabbed over with thick dry skin, and doesn't appear to be tender to the touch. Wound is currently ZIPPER MEASURER.
[2021-07-26] MEDS: HYDROcodone/acetaminophen (*CRX) 5-325 MG TABLET 1 TAB PO ×2 (15:15→21:19)
[2021-07-26 16:00] VITALS: BP 127/79; PULSE 94; RESP 18; TEMP 35.9; O2SAT 98
[2021-07-26 16:47] LABS: Glucose Point of Care 260 mg/dl (65-105)
[2021-07-26] MEDS: SIMVASTATIN 10 MG TABLET 60 MG PO (20:48)
[2021-07-26] MEDS: INSULIN GLARGINE (*BKC) 100 UNITS/ML 25 UNITS SUB-Q (20:49)
[2021-07-26] MEDS: LATANOPROST 0.005% OP SOLN 2.5 ML BTL 1 DROP EACH EYE (20:49)
[2021-07-26 21:09] LABS: Glucose Point of Care 318 mg/dl (65-105)
[2021-07-27] VITALS: BP 134/77; PULSE 79; RESP 18; TEMP 35.7; O2SAT 97
[2021-07-27] MEDS: LEVOTHYROXINE SODIUM 100 MCG TABLET 200 MCG PO (06:16)
[2021-07-27 08:00] VITALS: BP 112/65; PULSE 116; RESP 20; TEMP 36; O2SAT 97
[2021-07-27 08:10] LABS: Glucose Point of Care 228 mg/dl (65-105)
[2021-07-27] MEDS: FUROSEMIDE 40 MG TABLET PO (09:09)
[2021-07-27] MEDS: DOCUSATE SODIUM 100 MG CAPSULE PO ×2 (09:09→21:27)
[2021-07-27] MEDS: ASPIRIN 81 MG ENTERIC TABLET PO (09:09)
--- NOTE | 2021-07-27 09:21 | PM.IMPN ---
Progress Note: A&P Assessment and Plan (1) Weakness generalized: Code(s): R53.1 - Weakness Status: Acute Assessment and Plan: ? Exhibit tolerance during physical activity as evidenced by a normal fluctuation of vital signs during physical activity. ? Patient will be ability to perform required activities of daily living. ? Provide appropriate nutrition for healing and strength. ? Use appropriate to prevent falls. ? Continue physical therapy/occupational therapy. Patient is not improving and he is getting harder for the nurses to assist plan for patient to go to [facility] rehab upon discharge. Patient currently has prostatic on (2) Acute UTI: Code(s): N39.0 - Urinary tract infection, site not specified Status: Acute Assessment and Plan: Rocephin Discontinued as dosage needed Urine culture sent off after the start of Rocephin Patient's WBC within normal limits and afebrile UTI RESOLVED culture showed no growth (3) Knee osteoarthritis: Qualifiers: Laterality: right Osteoarthritis type: primary Qualified Code(s): M17.11 - Unilateral primary osteoarthritis, right knee Code(s): M17.10 - Unilateral primary osteoarthritis, unspecified knee Status: Acute Assessment and Plan: Pt given steroid injection in the emergency room physical therpay to evaluate and treat Antiinflammatory medicatin (4) Type 2 diabetes mellitus: Qualifiers: Diabetes mellitus surveyor's assistant insulin use: unspecified surveyor's assistant insulin use status Diabetes mellitus complication status: with skin complications Diabetes mellitus complication detail: with other skin ulcer Qualified Code(s): E11.622 - Type 2 diabetes mellitus with other skin ulcer; L98.499 - Non-pressure chronic ulcer of skin of other sites with unspecified severity Code(s): E11.9 - Type 2 diabetes mellitus without complications Status: Acute Assessment and Plan: Blood sugar less than 300 Accu checks with sliding scale hypoglycemic protocol Continue diabetic diet Will adjust medication as needed Additional Plan Continue to monitor blood sugar AC and HS Insulin according to sliding scale guideline Carb count diet educate on diabetes HGa1c pending Subjective Date/time seen: 07/27/21 09:21 this is Monster Colvin being seen as a swing patient labs to be drawn and resulted today currently he has not shown much improvement at this time is becoming harder for nurses to assist in getting up he does has his prosthetic:. Patient complains of right hip pain that shooting up his leg severe peripheral vascular disease of the lower right leg left leg is amputated he has a prosthetic which is very hard for him to ambulate on as he initially had a sore states that the sores a lot better not causing him as much pain. We will plan for patient next week to possibly go to a [facility] or rehab. Patient denies any fever any nausea vomiting and/or diarrhea at this time patient feels as if he is improving today patient is slightly tachycardic we will continue to monitor. Review of Systems Review of Systems: Weakness , and leg pain/Knee pain All systems reviewed & are unremarkable except as noted in HPI and below Exam Narrative: GENERAL: This is a well-nourished, in no apparent distress. HEAD: normocephalic, atraumatic. EYES: PERRL. Sclera clear/white. Vision is grossly intact. NOSE: External nose normal with no obvious nasal discharge, nares without redness, no rhinorrhea. THROAT: Mucous membranes moist, posterior pharynx clear. CARDIOVASCULAR: Regular rate and rhythm without murmurs, gallops, or rubs. RESPIRATORY: Clear to auscultation. Breath sounds equal bilaterally. No wheezes, rales, or rhonchi. GASTROINTESTINAL: Abdomen soft, non-tender, nondistended. Bowel sounds are active. No hepato-splenomegaly, or palpable masses. No guarding. SKIN: AKA to left lower extremity right lower extremity with dis
[2021-07-27 10:11] LABS: Hematocrit 47.7 % (37.0-46.0); Hemoglobin 13.7 g/dL (12.4-15.3); Immature Platelet Fraction Pct 0.9 % (1.0-7.0); Mean Corpuscular HGB Conc 28.7 g/dL (32.0-36.0); Mean Corpuscular Hemoglobin 21.9 pg (27.0-31.0); Mean Corpuscular Volume 76.2 fL (78.0-102.0); Mean Platelet Volume 8.5 fl (8.7-11.0); Platelet Count Result 674 K/mm3 (150-420); Red Blood Count 6.26 M/mm3 (4.70-6.10); Red Cell Distribution Width 21.7 % (11.6-14.4); White Blood Count 13.2 K/mm3 (4.8-10.8)
[2021-07-27 10:20] LABS: Anion Gap 16 mmol/L (8-16); Blood Urea Nitrogen 23 mg/dL (7-18); Calcium 9.2 mg/dL (8.5-10.1); Carbon Dioxide 22 mmol/L (21-32); Chloride 93 mmol/L (98-108); Estimated Glomerular Filt Rate 55; Glucose 363 mg/dL (70-99); Osmolality Calculated 290 mOsm/kg (285-295); Potassium 3.9 mmol/L (3.5-5.1); Sodium 131 mmol/L (136-145)
[2021-07-27 10:22] LABS: Hemoglobin A1C 7.2 % (<5.7)
[2021-07-27] MEDS: HYDROcodone/acetaminophen (*CRX) 5-325 MG TABLET 1 TAB PO ×2 (10:23→21:32)
[2021-07-27 11:57] LABS: Glucose Point of Care 250 mg/dl (65-105)
[2021-07-27 13:56] LABS: Add Urine Microscopic? YES; Appearance Urine Clear (Clear); Bilirubin Urine Negative (Negative); Blood Urine Negative (Negative); Color Urine Light Yellow (Yellow); Glucose Urine UA Trace (Negative); Ketones Urine Negative (Negative); Leukocyte Esterase Ur Negative LEU/UL (Negative); Nitrate Urine Negative (Negative); Protein Urine Negative (Negative); Specific Grav Ur 1.015 (1.010-1.020); Urobilinogen Urine 0.2 mg/dL (0.2-1.0); pH Urine 5.5 (5.0-8.0)
[2021-07-27 14:00] LABS: Bacteria Urine Trace /hpf; RBC Urine None seen /hpf (0-2); WBC Urine None seen /hpf (0-3)
[2021-07-27 16:00] VITALS: BP 123/72; PULSE 101; RESP 18; TEMP 35.8; O2SAT 98
[2021-07-27 16:58] LABS: Glucose Point of Care 219 mg/dl (65-105)
[2021-07-27] MEDS: SIMVASTATIN 10 MG TABLET 60 MG PO (21:29)
[2021-07-27] MEDS: LATANOPROST 0.005% OP SOLN 2.5 ML BTL 1 DROP EACH EYE (21:30)
[2021-07-27] MEDS: INSULIN GLARGINE (*BKC) 100 UNITS/ML 25 UNITS SUB-Q (21:31)
[2021-07-27 21:40] LABS: Glucose Point of Care 181 mg/dl (65-105)
[2021-07-27 23:36] VITALS: BP 132/77; PULSE 92; RESP 16; TEMP 36.6; O2SAT 96
[2021-07-28] MEDS: LEVOTHYROXINE SODIUM 100 MCG TABLET 200 MCG PO (06:33)
[2021-07-28 08:00] VITALS: BP 131/60
[2021-07-28 08:13] LABS: Glucose Point of Care 194 mg/dl (65-105)
[2021-07-28] MEDS: FUROSEMIDE 40 MG TABLET PO (08:54)
[2021-07-28] MEDS: DOCUSATE SODIUM 100 MG CAPSULE PO ×2 (08:55→20:04)
[2021-07-28] MEDS: ASPIRIN 81 MG ENTERIC TABLET PO (08:55)
[2021-07-28 11:55] LABS: Glucose Point of Care 314 mg/dl (65-105)
[2021-07-28 16:00] VITALS: BP 106/87; PULSE 82; RESP 17; TEMP 36.1; O2SAT 98
[2021-07-28 17:09] LABS: Glucose Point of Care 244 mg/dl (65-105)
[2021-07-28] MEDS: HYDROcodone/acetaminophen (*CRX) 5-325 MG TABLET 1 TAB PO (20:04)
[2021-07-28] MEDS: SIMVASTATIN 10 MG TABLET 60 MG PO (20:05)
[2021-07-28] MEDS: LATANOPROST 0.005% OP SOLN 2.5 ML BTL 1 DROP EACH EYE (20:07)
[2021-07-28] MEDS: INSULIN GLARGINE (*BKC) 100 UNITS/ML 25 UNITS SUB-Q (20:08)
[2021-07-28 20:09] LABS: Glucose Point of Care 295 mg/dl (65-105)
[2021-07-28] MEDS: traMADol HCL (*CRX) 25 MG TABLET PO (23:36)
--- NOTE | 2021-07-28 23:37 | PC.NURSE ---
Tramadol given for leg pain, states has not been sleeping due to pain
[2021-07-28 23:43] VITALS: BP 110/60; PULSE 90; RESP 18; TEMP 36.1; O2SAT 95
[2021-07-29] MEDS: LEVOTHYROXINE SODIUM 100 MCG TABLET 200 MCG PO (05:41)
[2021-07-29 08:00] VITALS: BP 110/69; PULSE 108; RESP 14; TEMP 36.1; O2SAT 96
[2021-07-29 08:31] LABS: Glucose Point of Care 182 mg/dl (65-105)
[2021-07-29] MEDS: DOCUSATE SODIUM 100 MG CAPSULE PO ×2 (09:37→21:03)
[2021-07-29] MEDS: FUROSEMIDE 40 MG TABLET PO (09:37)
[2021-07-29] MEDS: ASPIRIN 81 MG ENTERIC TABLET PO (09:37)
[2021-07-29] MEDS: traMADol HCL (*CRX) 25 MG TABLET PO (09:47)
[2021-07-29 12:13] LABS: Glucose Point of Care 302 mg/dl (65-105)
[2021-07-29 16:30] VITALS: BP 134/59; PULSE 98; RESP 16; TEMP 35.7; O2SAT 100
[2021-07-29 16:49] LABS: Glucose Point of Care 358 mg/dl (65-105)
[2021-07-29] MEDS: HYDROcodone/acetaminophen (*CRX) 5-325 MG TABLET 1 TAB PO (17:49)
[2021-07-29 18:14] VITALS: BMI 29.6
[2021-07-29 21:03] LABS: Glucose Point of Care 321 mg/dl (65-105)
[2021-07-29] MEDS: INSULIN GLARGINE (*BKC) 100 UNITS/ML 25 UNITS SUB-Q (21:03)
[2021-07-29] MEDS: LATANOPROST 0.005% OP SOLN 2.5 ML BTL 1 DROP EACH EYE (21:03)
[2021-07-29] MEDS: SIMVASTATIN 10 MG TABLET 60 MG PO (21:03)
[2021-07-30] VITALS: BP 135/69; PULSE 89; RESP 16; TEMP 35.8; O2SAT 96
[2021-07-30] MEDS: HYDROcodone/acetaminophen (*CRX) 5-325 MG TABLET 1 TAB PO ×3 (00:23→19:27)
[2021-07-30] MEDS: LEVOTHYROXINE SODIUM 100 MCG TABLET 200 MCG PO (06:05)
[2021-07-30 07:26] LABS: Glucose Point of Care 214 mg/dl (65-105)
[2021-07-30 08:00] VITALS: BP 125/75; PULSE 89; RESP 16; TEMP 36.1; O2SAT 96
[2021-07-30] MEDS: DOCUSATE SODIUM 100 MG CAPSULE PO ×2 (08:29→21:51)
[2021-07-30] MEDS: FUROSEMIDE 40 MG TABLET PO (08:29)
[2021-07-30] MEDS: ASPIRIN 81 MG ENTERIC TABLET PO (08:29)
[2021-07-30 11:32] LABS: Glucose Point of Care 345 mg/dl (65-105)
[2021-07-30 15:39] VITALS: BP 127/64; PULSE 82; RESP 18; TEMP 35.9; O2SAT 98
[2021-07-30 16:38] LABS: Glucose Point of Care 316 mg/dl (65-105)
[2021-07-30] MEDS: SIMVASTATIN 10 MG TABLET 60 MG PO (21:50)
[2021-07-30 21:52] LABS: Glucose Point of Care 300 mg/dl (65-105)
[2021-07-30] MEDS: INSULIN GLARGINE (*BKC) 100 UNITS/ML 25 UNITS SUB-Q (21:53)
[2021-07-30] MEDS: LATANOPROST 0.005% OP SOLN 2.5 ML BTL 1 DROP EACH EYE (21:53)
[2021-07-31] VITALS: BP 142/63; PULSE 75; RESP 18; TEMP 37.2; O2SAT 98
[2021-07-31] MEDS: HYDROcodone/acetaminophen (*CRX) 5-325 MG TABLET 1 TAB PO ×3 (01:47→20:58)
[2021-07-31] MEDS: LEVOTHYROXINE SODIUM 100 MCG TABLET 200 MCG PO (06:01)
[2021-07-31 07:50] LABS: Glucose Point of Care 196 mg/dl (65-105)
[2021-07-31 07:52] VITALS: BP 127/75; PULSE 93; RESP 16; TEMP 36.1; O2SAT 96
[2021-07-31] MEDS: FUROSEMIDE 40 MG TABLET PO (08:05)
[2021-07-31] MEDS: ASPIRIN 81 MG ENTERIC TABLET PO (08:05)
[2021-07-31] MEDS: DOCUSATE SODIUM 100 MG CAPSULE PO ×2 (08:05→20:40)
[2021-07-31 11:49] LABS: Glucose Point of Care 301 mg/dl (65-105)
[2021-07-31 16:00] VITALS: BP 115/79; PULSE 97; RESP 16; TEMP 36.4; O2SAT 99
[2021-07-31 16:45] LABS: Glucose Point of Care 263 mg/dl (65-105)
[2021-07-31 20:44] LABS: Glucose Point of Care 222 mg/dl (65-105)
[2021-07-31] MEDS: INSULIN GLARGINE (*BKC) 100 UNITS/ML 25 UNITS SUB-Q (20:53)
[2021-07-31] MEDS: LATANOPROST 0.005% OP SOLN 2.5 ML BTL 1 DROP EACH EYE (20:56)
[2021-07-31] MEDS: SIMVASTATIN 10 MG TABLET 60 MG PO (21:00)
[2021-08-01] VITALS: BP 126/74; PULSE 84; RESP 20; TEMP 36.4; O2SAT 95
[2021-08-01] MEDS: LEVOTHYROXINE SODIUM 100 MCG TABLET 200 MCG PO (06:06)
[2021-08-01 07:41] LABS: Glucose Point of Care 159 mg/dl (65-105)
[2021-08-01 08:00] VITALS: BP 127/74; PULSE 89; RESP 14; TEMP 36.1; O2SAT 96
[2021-08-01] MEDS: DOCUSATE SODIUM 100 MG CAPSULE PO ×2 (09:04→20:48)
[2021-08-01] MEDS: FUROSEMIDE 40 MG TABLET PO (09:04)
[2021-08-01] MEDS: ASPIRIN 81 MG ENTERIC TABLET PO (09:04)
[2021-08-01 11:45] LABS: Glucose Point of Care 274 mg/dl (65-105)
[2021-08-01] MEDS: HYDROcodone/acetaminophen (*CRX) 5-325 MG TABLET 1 TAB PO ×2 (15:55→22:14)
[2021-08-01 16:00] VITALS: BP 116/65; PULSE 96; RESP 18; TEMP 36.2; O2SAT 98
[2021-08-01 17:00] LABS: Glucose Point of Care 248 mg/dl (65-105)
[2021-08-01 20:52] LABS: Glucose Point of Care 305 mg/dl (65-105)
[2021-08-01] MEDS: INSULIN GLARGINE (*BKC) 100 UNITS/ML 25 UNITS SUB-Q (20:56)
[2021-08-01] MEDS: LATANOPROST 0.005% OP SOLN 2.5 ML BTL 1 DROP EACH EYE (20:57)
[2021-08-01] MEDS: SIMVASTATIN 10 MG TABLET 60 MG PO (20:58)
[2021-08-01 23:50] VITALS: BP 131/77; PULSE 75; RESP 20; TEMP 36.6; O2SAT 98
[2021-08-02] MEDS: LEVOTHYROXINE SODIUM 100 MCG TABLET 200 MCG PO (05:50)
[2021-08-02 07:49] LABS: Glucose Point of Care 184 mg/dl (65-105)
[2021-08-02 07:52] VITALS: BP 126/77; PULSE 95; RESP 14; TEMP 35.6; O2SAT 97
--- NOTE | 2021-08-02 07:57 | PM.DS ---
DS: Admitting Diagnosis Discharge Date 08/02/2021 Admitting Diagnosis Weakness DS: Summary Time Spent with Patient Time attestation: Total time spent providing and/or coordinating discharge services: DS: Data Data Completed and Pending Labs on day of discharge: Labs from last 24 hours 08/02/21 08/01/21 08/01/21 07:44 20:45 16:54 POC Capillary Glucose 184 H 305 H 248 H 08/01/21 11:39 POC Capillary Glucose 274 H Discharge Plan Discharge Discharge Medications: No Action hydrocodone-acetaminophen 5-325 mg tablet 1 tablet PO PRN PRN (Reason: Pain) RF: 0 acetaminophen-codeine 300-30 mg tablet 1 tablet PO PRN RF: 0 betamethasone dipropionate 0.05 % cream 1 applic TOPICAL BID RF: 0 albuterol sulfate 90 mcg/actuation HFA aerosol inhaler 1 puff INHALATION Q4-5H RF: 0 aspirin 81 mg PO DAILY RF: 0 furosemide 40 mg tablet 40 mg PO DAILY RF: 0 simvastatin 40 mg tablet 60 mg PO HS RF: 0 levothyroxine 200 mcg tablet 200 mcg PO DAILY RF: 0 Lumigan 0.01 % drops 1 drp ophthalmic (eye) HS RF: 0 Inlyta 1 mg tablet 5 mg PO BID RF: 0 Tresiba FlexTouch U-100 100 unit/mL (3 mL) insulin pen 20 unit SUBCUT DAILY RF: 0 Mucinex 600 mg PO BID RF: 0 ceftriaxone 1 gram Recon Soln 1 g IV Q24H 7 Days RF: 0 Date of admission: 07/20/21 12:41 Primary Care Provider: Alejo,Jordan Vincent Admitting Provider: Luiza Geronimo Attending physician on admission: Luiza Geronimo
[2021-08-02] MEDS: DOCUSATE SODIUM 100 MG CAPSULE PO ×2 (08:50→21:02)
[2021-08-02] MEDS: ASPIRIN 81 MG ENTERIC TABLET PO (08:50)
[2021-08-02] MEDS: HYDROcodone/acetaminophen (*CRX) 5-325 MG TABLET 1 TAB PO ×2 (08:50→21:01)
[2021-08-02] MEDS: FUROSEMIDE 40 MG TABLET PO (08:52)
[2021-08-02] MEDS: ESCITALOPRAM OXALATE 10 MG TABLET PO (10:20)
--- NOTE | 2021-08-02 11:21 | PC.NURSE ---
Pt started on 10mg generic Lexapro for anxiety and depression. Pt instructed regarding doseage, time, SE of new medication. Pt verbalized understanding .
[2021-08-02 11:34] LABS: Glucose Point of Care 278 mg/dl (65-105)
--- NOTE | 2021-08-02 11:58 | PM.EVENT ---
Event Note Event Note Event Note: Patient complained of some depression and feeling hopelessness started patient on Lexapro at this time.
[2021-08-02 16:20] VITALS: BP 124/72; PULSE 93; RESP 16; TEMP 36.6; O2SAT 97
[2021-08-02 16:28] LABS: Glucose Point of Care 329 mg/dl (65-105)
--- NOTE | 2021-08-02 19:33 | PC.NURSE ---
Pt was transferred from chair to bed with 2 assist and the [employer]. Pt handled transfer very well, and verbalized he was pleased with the execution and precautions taken in terms of pt safety followed by this abstract writer and Brittany Ferguson RN.. Bed was then put in lowest position for pt safety and 4 bed rails are raised per pt request. 550 ml of fresh ice water was brought to the pt per request. Call light is within reach.
[2021-08-02 20:49] LABS: Glucose Point of Care 276 mg/dl (65-105)
[2021-08-02] MEDS: INSULIN GLARGINE (*BKC) 100 UNITS/ML 25 UNITS SUB-Q (21:00)
[2021-08-02] MEDS: LATANOPROST 0.005% OP SOLN 2.5 ML BTL 1 DROP EACH EYE (21:00)
[2021-08-02] MEDS: SIMVASTATIN 10 MG TABLET 60 MG PO (21:01)
[2021-08-02 23:01] VITALS: BP 127/85; PULSE 88; RESP 18; TEMP 36.4; O2SAT 96
[2021-08-03] MEDS: HYDROcodone/acetaminophen (*CRX) 5-325 MG TABLET 1 TAB PO (03:22)
[2021-08-03] MEDS: LEVOTHYROXINE SODIUM 100 MCG TABLET 200 MCG PO (06:40)
--- NOTE | 2021-08-03 07:30 | PM.DS ---
DS: Admitting Diagnosis Discharge Date 08/03/2021 Admitting Diagnosis Weakness debility DS: Discharge Diagnosis Discharge Diagnosis (1) Weakness generalized: Code(s): R53.1 - Weakness Status: Acute Assessment and Plan: ? Exhibit tolerance during physical activity as evidenced by a normal fluctuation of vital signs during physical activity. ? Patient will be ability to perform required activities of daily living. ? Provide appropriate nutrition for healing and strength. ? Use appropriate to prevent falls. ? Continue physical therapy/occupational therapy. Discharge Patient has little improvement will discharge to a SNF for further PT OT therapy (2) Acute UTI: Code(s): N39.0 - Urinary tract infection, site not specified Status: Acute Assessment and Plan: Rocephin Discontinued as dosage needed Urine culture sent off after the start of Rocephin Patient's WBC within normal limits and afebrile UTI RESOLVED culture showed no growth (3) Knee osteoarthritis: Qualifiers: Laterality: right Osteoarthritis type: primary Qualified Code(s): M17.11 - Unilateral primary osteoarthritis, right knee Code(s): M17.10 - Unilateral primary osteoarthritis, unspecified knee Status: Acute Assessment and Plan: Pt given steroid injection in the emergency room physical therpay to evaluate and treat Antiinflammatory medicatin (4) Type 2 diabetes mellitus: Qualifiers: Diabetes mellitus retirement insulin use: unspecified retirement insulin use status Diabetes mellitus complication status: with skin complications Diabetes mellitus complication detail: with other skin ulcer Qualified Code(s): E11.622 - Type 2 diabetes mellitus with other skin ulcer; L98.499 - Non-pressure chronic ulcer of skin of other sites with unspecified severity Code(s): E11.9 - Type 2 diabetes mellitus without complications Status: Acute Assessment and Plan: Blood sugar less than 300 Accu checks with sliding scale hypoglycemic protocol Continue diabetic diet Will adjust medication as needed DS: Summary Hospital Course Hospital Course: This is a 70-year-old male that presented to our emergency department with worsening pain to his right knee , generalized weakness status post fall. According to the patient approximately 2 weeks before admission he presented to [facility] [place] emergency department due to his weakness and was diagnosed with arthritis to his right knee. Patient notes that his condition did not improve and he came to our emergency department status post fall and generalized weakness with unresolved right knee pain. patient notes that he experienced pain with weightbearing and no pain while sitting still. Patient pain has improved he will be discharging to SNF today. Patient sits to stand with max assist, ambulates with wheeled walker and contact-guard assist x50 feet. The patient denies SOB, CP, palpitation, extremity numbness, lightheadedness, dizziness, constipation, diarrhea, chills, or fever. Time Spent with Patient Time attestation: Total time spent providing and/or coordinating discharge services: Exam Narrative: GENERAL: This is a well-nourished, well-developed patient, in no apparent distress. HEAD: normocephalic, atraumatic. EYES: PERRL. Sclera clear/white. Vision is grossly intact. EARS: External ears normal, auditory canals clear and without drainage, TMs normal without perforation. Hearing grossly intact. NOSE: External nose normal with no obvious nasal discharge, nares without redness, no rhinorrhea. THROAT: Mucous membranes moist, posterior pharynx clear. NECK: Neck supple, non-tender without lymphadenopathy, masses or thyromegaly. CARDIOVASCULAR: Regular rate and rhythm without murmurs, gallops, or rubs. RESPIRATORY: Clear to auscultation. Breath sounds equal bilaterally. No wheezes, rales, or rhonchi. GASTROINTESTINAL: Abdomen soft, non-tender, nondi
[2021-08-03 07:39] LABS: Glucose Point of Care 137 mg/dl (65-105)
[2021-08-03 08:00] VITALS: BP 131/73; PULSE 90; RESP 14; TEMP 35.8; O2SAT 97
[2021-08-03] MEDS: ASPIRIN 81 MG ENTERIC TABLET PO (09:03)
[2021-08-03] MEDS: DOCUSATE SODIUM 100 MG CAPSULE PO (09:03)
[2021-08-03] MEDS: ESCITALOPRAM OXALATE 10 MG TABLET PO (09:03)
[2021-08-03] MEDS: FUROSEMIDE 40 MG TABLET PO (09:03)
[2021-08-03 11:11] LABS: Glucose Point of Care 256 mg/dl (65-105)
--- NOTE | 2021-08-03 12:37 | PC.NURSE ---
Pt discharhged to [facility] with [facility]. Pt instructed regarding medications. Home medications returned and discharge information for the facility sent with pt. [facility] sent a van and regional flatbed truck driver to [employer] pt.
--- NOTE | 2021-08-08 11:11 | PC.NURSE ---
Follow up call made, remains in quarantine at [facility], all paperwork recieved by facility, no questions voiced.
== END 2021-08-03 12:20 | DRG 948 ==
PROVIDERS: Nurse Practitioner; Nurse Practitioner Family; Admitting Provider Emergency Medicine; PCP Internal Medicine; Visit Provider Emergency Medicine
DX: R53.1 Weakness (principal); N39.0 Urinary tract infection, site not specified; M17.11 Unilateral primary osteoarthritis, right knee; I73.9 Peripheral vascular disease, unspecified; E78.5 Hyperlipidemia, unspecified; E11.9 Type 2 diabetes mellitus without complications; E03.9 Hypothyroidism, unspecified; R91.1 Solitary pulmonary nodule; Z85.528 Personal history of other malignant neoplasm of kidney; Z89.612 Acquired absence of left leg above knee
CPT/HCPCS: 36415; 71045; 80048; 80053; 81001; 82607; 82728; 82746; 82948; 83036; 83540; 83550; 83735; 85027; 85055; 97110; 97161; 97165; 97530; 97535; A9270; J0696; J1815